=== PATIENT | male | born 1960 | race Caucasian/White ===

== ENCOUNTER 2021-12-20 05:44 | Emergency (ER) | payer BC, SELFPAY ==
--- NOTE | ~2021-12-20 | CT_ITS ---
EXAMINATION: CT lumbar spine wo con DATE: 12/20/2021 08:22 INDICATION: Back pain post fall TECHNIQUE: Computed tomography (CT) of the lumbar spine was performed without intravenous contrast. A utomated exposure control and iterative reconstruction technique were employed. The dose-length produ ct was 918.61 mGy-cm. COMPARISON: None FINDINGS: 4 mm retrolisthesis L3 on L4, 3 mm retrolisthesis L5 on S1 and 2 mm retrolisthesis L2 on L3 and L4 on L5. Vertebral body heights are normal. No fracture. Mild disc height loss at L2-L3 and L3-L4. Mild r ight and moderate left hydroureteronephrosis extending to the bladder which probably partially visual ized appears significantly distended. No stones or obstructing lesions identified along the course of the ureters which is visualized in its entirety to the ureterovesicular junction on the right anteri or near the ureterovesicular junction on the left. Findings suggest that the hydronephrosis is relate d to reflux and suggests chronic bladder outlet obstruction. Paravertebral soft tissues are unremarka ble. The following disc levels are specifically discussed: T12-L1 through L2-L3: The disc does not extend beyond the endplate margin. There is minimal bilateral facet joint osteoarthritis. There is no neural foraminal stenosis. There is no central canal stenosi s. L3-L4: Disc is bulging. There is mild left and minimal right facet joint osteoarthritis. There is mil d bilateral neural foraminal stenosis. There is mild central canal stenosis. L4-L5: Disc is bulging. There is mild bilateral facet joint osteoarthritis. There is mild bilateral n eural foraminal stenosis. There is mild central canal stenosis. L5-S1: Disc is bulging. There is mild bilateral facet joint osteoarthritis. There is mild to moderate left and no right neural foraminal stenosis. There is no central canal stenosis. IMPRESSION: 1. Mild lumbar spondylosis. No acute osseous abnormality. 2. Mild right and moderate left hydroureteronephrosis which appears to extend to be markedly distende d bladder with no evident obstructing lesions likely related to bladder outlet obstruction and vesico ureteral reflux. Reviewed, dictated and finalized at location B. IMPRESSION: 1. Mild lumbar spondylosis. No acute osseous abnormality. 2. Mild right and moderate left hydroureteronephrosis which appears to extend t o be markedly distended bladder with no evident obstructing lesions likely rela lion to bladder outlet obstruction and vesicoureteral reflux.
--- NOTE | ~2021-12-20 | XR_ITS ---
EXAMINATION: XR hip RT min 3V w AP pelvis DATE: 12/20/2021 08:24 INDICATION: Right hip pain. Fall. TECHNIQUE: An anteroposterior view of the pelvis and 3 views of right hip were obtained. COMPARISON: None. FINDINGS: Bone alignment is normal. No fracture. There is mild osteoarthritis of the hips. IMPRESSION: 1. Mild osteoarthritis of the hips. Reviewed, dictated and finalized at location A.
--- NOTE | ~2021-12-20 | XR_ITS ---
EXAMINATION: XR knee RT min 4V DATE: 12/20/2021 08:24 INDICATION: Right knee pain. Fall. TECHNIQUE: 4 views of right knee were obtained. COMPARISON: Right knee radiographs 04/19/2019 FINDINGS: Bone alignment is normal. No fracture. There is moderate osteoarthritis of medial compartme nt and mild osteoarthritis of lateral and patellofemoral compartments. There is a moderate-sized knee joint effusion. IMPRESSION: 1. Moderate right knee osteoarthritis. 2. Moderate-sized right knee joint effusion. Reviewed, dictated and finalized at location A.
[2021-12-20 05:46] VITALS: BP 115/63; PULSE 75; RESP 18; TEMP 36.9; O2SAT 97
--- NOTE | 2021-12-20 07:04 | ED.FALL ---
HPI - Fall General Chief Complaint: Fall Stated Complaint: Fall, Lower Back Pain Time Seen by Provider: 12/20/21 07:04 History of Present Illness HPI Narrative: Patient is a 61-year-old male presenting to the emergency department for evaluation following a fall. Patient states that he was removing a fan in his attic and there is a hole in the attic that he inadvertently stepped into. This caused him to hit his back on the edge of the hole in the attic. Patient states that his right leg was also stuck and he is experiencing some aching right knee pain that is worse with movement. This injury occurred over 12 hours ago, patient with increasing pain and difficulty ambulating this morning. He denies any urinary retention, saddle anesthesia, lower extremity weakness. He has taken 2 Tylenol for pain. He denies fever, chills, nausea, vomiting, chest pain. He denies upper extremity pain. Reports the most severe pain is located in his middle lower back. No radiation into the buttock. No bruising that he has noticed. Pt denies LOC or head trauma. Related Data Home Medications Medication Instructions Recorded Confirmed levothyroxine 04/19/19 lisinopril 10 mg tablet tablet 12/20/21 terazosin 10 mg capsule cap 12/20/21 Allergies Allergy/AdvReac Type Severity Reaction Status Date / Time No Known Allergies Allergy Verified 12/20/21 05:49 Review of Systems Review of Systems: CONSTITUTIONAL: Denies fever CARDIOVASCULAR: Denies chest pain RESPIRATORY: Denies cough or dyspnea. GASTROINTESTINAL: Denies abdominal pain SKIN: Denies rash MUSCULOSKELETAL: Reports lumbar pain, reports right knee pain NEUROLOGIC: Denies headache PMFSH Past Medical History Medical History GERD (gastroesophageal reflux disease) HTN (hypertension) Hypothyroidism Social History Social History Smoking status: Never smoker Alcohol intake: never Substance use: never Gender identity (if verbalized by the patient): Male Exam Narrative: GENERAL: Awake, alert, conversant, pt uncomfortable appearing HEAD: Normocephalic, atraumatic. EYES: PERRLA and EOMI. ENT: Nares clear, no rhinorrhea or epistaxis. Mucous membranes moist. NECK: Supple. CHEST: No respiratory distress, breathing even and non labored HEART: Regular rate, sinus rhythm ABDOMEN:Non distended, non tender Thorax: Pt without cervical, thoracic midline pain, pt with + lumbar midline pain, no SI joint tenderness bilaterally EXTREMITIES: Normal range of motion. No edema. SKIN: Warm, dry, no rash. NEURO:No focal deficits. Alert and oriented x3 Course Vital Signs Vital signs: Vital Signs Temperature 36.9 C 12/20/21 05:46 Pulse Rate 75 12/20/21 05:46 Respiratory Rate 18 12/20/21 05:46 Blood Pressure 115/63 12/20/21 05:46 Pulse Oximetry 97 12/20/21 05:46 Oxygen Delivery Room Air 12/20/21 05:46 Temperature 36.9 C 12/20/21 05:46 Pulse Rate 60 12/20/21 07:18 Respiratory Rate 17 12/20/21 07:18 Blood Pressure 108/68 12/20/21 07:18 Pulse Oximetry 98 12/20/21 07:18 Oxygen Delivery Room Air 12/20/21 05:46 MDM - Fall MDM Narrative Medical decision making narrative: Patient presenting for evaluation of fall while in his attic, striking his back in a hole on the floor. Patient reporting midline lumbar pain, right knee pain. Patient has been ambulatory and is neurovascularly intact. No focal deficits. No saddle anesthesia or urinary retention. No infectious type symptoms that would be consistent with epidural abscess. Low suspicion for spinal cord injury based on symptoms. Obtain CT lumbar spine which shows no acute osseous abnormality. Patient only requested Tylenol in the emergency department and did not wish for any other pain medication. He was also given an oral dose of steroids. There was comment on the CT scan that he had
[2021-12-20 07:18] VITALS: BP 108/68; PULSE 60; RESP 17; O2SAT 98
[2021-12-20] MEDS: ACETAMINOPHEN 500 MG TABLET 1000 MG PO (07:45)
[2021-12-20 09:18] LABS: Appearance Urine Clear (Clear); Bilirubin Urine Negative (Negative); Blood Urine Negative (Negative); Color Urine Yellow (Yellow); Glucose Urine UA Negative (Negative); Ketones Urine Negative (Negative); Leukocyte Esterase Ur Negative LEU/UL (Negative); Nitrate Urine Negative (Negative); Protein Urine Negative (Negative); Specific Grav Ur 1.015 (1.001-1.035); Urobilinogen Urine 0.2 mg/dL (<2.0)
[2021-12-20 09:50] VITALS: BP 107/71; PULSE 57; RESP 15; O2SAT 97
[2021-12-20 10:11] LABS: Add Urine Microscopic? NO
== END 2021-12-20 09:51 | disposition home or self-care (01) ==
PROVIDERS: Emergency Provider Emergency Medicine; PCP Family Medicine
DX: S39.012A Strain of muscle, fascia and tendon of lower back, initial encounter (principal); S86.911A Strain of unspecified muscle(s) and tendon(s) at lower leg level, right leg, initial encounter; I10 Essential (primary) hypertension; E03.9 Hypothyroidism, unspecified; K21.9 Gastro-esophageal reflux disease without esophagitis; M16.0 Bilateral primary osteoarthritis of hip; M17.11 Unilateral primary osteoarthritis, right knee; M47.816 Spondylosis without myelopathy or radiculopathy, lumbar region; N13.30 Unspecified hydronephrosis; W18.39XA Other fall on same level, initial encounter
CPT/HCPCS: 72131; 73502; 73564; 81003; 99284; A9270; J1100